=== PATIENT | female | born 1995 | race African-American/Black ===

== ENCOUNTER 2022-07-31 09:09 | Emergency (ER) | payer MEDICAID, SELFPAY ==
[2022-07-31 09:20] VITALS: BP 131/70; PULSE 89; RESP 16; TEMP 36.6; O2SAT 99
--- NOTE | 2022-07-31 09:47 | ED.DENTAL ---
HPI - Dental/Oral General Chief complaint: Dental/Oral Stated complaint: Dental Pain Time Seen by Provider: 07/31/22 10:02 Mode of arrival: ambulatory Limitations: no limitations History of Present Illness HPI Narrative: 27-year-old female presents concern for abscess tooth. She reports she has a broken wisdom tooth that she broke some time ago. She reports her pain is radiating to her ear head. Reports she has had infections in that tooth before she just finished a round of penicillin for an ear and tooth infection she was prescribed in the middle of July. She reports that did not help her tooth infection. She reports she has dental insurance kicking in next month and is looking for an oral surgeon to repair her tooth. She denies taking any other [id number] medications. Denies fever or trouble swallowing MD Complaint: tooth pain Related Data Allergies Allergy/AdvReac Type Severity Reaction Status Date / Time No Known Drug Allergies Allergy Unknown Other Verified 07/31/22 09:48 Review of Systems Review of Systems: CONSTITUTIONAL: Denies malaise, chills, sweats, or fever. EYES: Denies visual changes ENT: Denies rhinorrhea, congestion, sinus pain, otalgia or sore throat. Reports left upper dental pain CARDIOVASCULAR: Denies chest pain, palpitations RESPIRATORY: Denies cough or dyspnea. SKIN: Denies rash or itching. MUSCULOSKELETAL: Denies myalgia. NEUROLOGIC: Denies numbness, weakness, or headache. All systems reviewed & are unremarkable except as noted in HPI and below PMFSH Comments At time of signature, agree with nursing past medical, surgical, social and family history. There is no relevant family history pertinent to the presenting complaint Exam Narrative: GENERAL: Well-appearing, well-nourished, and in no acute distress. HEAD: Normocephalic, atraumatic. EYES: PERRLA, sclera clear ENT: Nares clear, turbinates pink, no rhinorrhea or epistaxis. Mucous membranes moist. TM pearly teresa with sharp light reflex bilaterally; no tragal tenderness. Oropharynx without erythema or lesions. Tonsils not enlarged and without exudate. Tooth 2. Broken without visible gingival or apical abscess, left cheek mildly swollen and tender NECK: Supple. No lymphadenopathy. CHEST: No respiratory distress. Speaks in full sentences. HEART: Regular rate and rhythm. SKIN: Warm, dry, no visible rash. NEURO: Alert and oriented x3. PSYCH: Normal mood and affect Course Course Emergency Course: Patient is aware of diagnosis, understands and agrees to treatment plan. Anticipatory guidance given. Patient agrees to follow-up as directed and is aware of reasons to seek care at the emergency department. Portions of this record may have been created with voice recognition software Level of Care: Express Care Visit Vital Signs Vital signs: Vital Signs Temperature 97.9 F 07/31/22 09:20 Pulse Rate 89 07/31/22 09:20 Respiratory Rate 16 07/31/22 09:20 Blood Pressure 131/70 07/31/22 09:20 Pulse Oximetry 99 07/31/22 09:20 Oxygen Delivery Room Air 07/31/22 09:20 Temperature 97.9 F 07/31/22 09:20 Pulse Rate 89 07/31/22 09:20 Respiratory Rate 16 07/31/22 09:20 Blood Pressure 131/70 07/31/22 09:20 Pulse Oximetry 99 07/31/22 09:20 Oxygen Delivery Room Air 07/31/22 09:20 Reviewed. MDM - Dental/Oral MDM Narrative Medical decision making narrative: Patients pain and complaint coupled with physical findings are consistant with dentalgia. There are no focal signs of space occupying lesions that are compromising to the airway; no dysphagia, odynophagia, dysphonia, or dyspnea. No uvular deviation or soft palate edema. Patient is non-toxic appearing. The floor of the mouth is soft with no signs of Myron's Angina; no induration below mandible, no neck pain. Patient is without trismus or drooling and able to swallow secretions. Patient is felt appropriate for discharge home with dental follow up. Merly
== END 2022-07-31 10:24 | disposition home or self-care (01) ==
PROVIDERS: Emergency Provider Nurse Practitioner
DX: K04.7 Periapical abscess without sinus (principal)
CPT/HCPCS: 99213; G0463

== ENCOUNTER 2022-12-16 12:12 | Emergency (ER) | payer OTHER, SELFPAY ==
[2022-12-16 12:20] VITALS: BP 113/63; PULSE 103; RESP 16; TEMP 36.9; O2SAT 100
[2022-12-16 12:24] VITALS: BP 113/63; PULSE 103; RESP 16; TEMP 36.9; O2SAT 100
--- NOTE | 2022-12-16 12:29 | ED.EAR ---
HPI - Ear Problem General Chief complaint: Ear Stated complaint: ear pain Time Seen by Provider: 12/16/22 12:29 Source: patient Mode of arrival: ambulatory Limitations: no limitations History of Present Illness HPI Narrative: 27-year-old female presented for complaint of bilateral ear itching, pain, and decreased hearing for about 3 days. Reports pain all around both ears and into the forehead. Pain is described as sharp and shooting. She has been using Q-tips, thinking she is having ear wax problem. Endorses mild drainage. She used earwax kit and ear drops for pain relief. Denies dizziness, tinnitus, sinus congestion, nausea, vomiting, fevers or chills. MD Complaint: ear pain Related Data Allergies Allergy/AdvReac Type Severity Reaction Status Date / Time No Known Drug Allergies Allergy Unknown Other Verified 12/16/22 12:23 Review of Systems Review of Systems: CONSTITUTIONAL: Denies malaise, chills, or fever. EYES: Denies visual changes, redness, or discharge. ENT: Denies rhinorrhea, congestion, sinus pain, and sore throat. Reports ear pain CARDIOVASCULAR: Denies chest pain, palpitations, or edema. RESPIRATORY: Denies cough or dyspnea. GASTROINTESTINAL: Denies abdominal pain, nausea, vomiting, diarrhea SKIN: Denies rash or itching. MUSCULOSKELETAL: Denies myalgia. All systems reviewed & are unremarkable except as noted in HPI and below PMFSH Past Medical History Medical History (Updated 12/16/22 @ 12:43 by Jovana Herrera, EVY) No pertinent past medical history Comments At time of signature, agree with nursing past medical, surgical, social and family history. There is no relevant family history pertinent to the presenting complaint Exam Narrative: GENERAL: Well-appearing, well-nourished, and in no acute distress. HEAD: Normocephalic EYES: PERRLA, conjunctivae clear ENT: Nares clear. Mucous membranes moist. Bilateral canals erythematous and tender with mild swelling and scant drainage; no occlusion. TMs pearly teresa with light reflex bilaterally; mild tragal tenderness. NECK: Supple. No lymphadenopathy CHEST: Clear to auscultation, breath sounds equal. HEART: Regular rate and rhythm. SKIN: Warm, dry, no rash. NEURO: Alert and oriented x3. PSYCH: Normal mood and affect Course Course Emergency Course: Patient is aware of diagnosis, understands and agrees to treatment plan. Anticipatory guidance given. Patient agrees to follow-up as directed and is aware of reasons to seek care at the emergency department. Portions of this record may have been created with voice recognition software Level of Care: Express Care Visit Vital Signs Vital signs: Vital Signs Temperature 98.4 F 12/16/22 12:20 Pulse Rate 103 H 12/16/22 12:20 Respiratory Rate 16 12/16/22 12:20 Blood Pressure 113/63 12/16/22 12:20 Pulse Oximetry 100 12/16/22 12:20 Oxygen Delivery Room Air 12/16/22 12:20 Temperature 98.4 F 12/16/22 12:24 Pulse Rate 103 H 12/16/22 12:24 Respiratory Rate 16 12/16/22 12:24 Blood Pressure 113/63 12/16/22 12:24 Pulse Oximetry 100 12/16/22 12:24 Oxygen Delivery Room Air 12/16/22 12:24 Reviewed Medical Decision Making MDM Narrative Medical decision making narrative: Discussed PE with pt. Advised supportive measures and signs/symptoms to go to the ER. Patient is appropriate for outpatient treatment and follow-up. Differential Diagnosis Differential Diagnosis: Coronavirus, strep pharyngitis, allergic rhinitis, upper respiratory tract infection, sinusitis, rhinosinusitis, nasopharyngitis, viral pharyngitis, otitis media, otitis externa, eustachian tube dysfunction, foreign body, cerumen impaction. Vital Signs Vital Signs: Vital Signs Temperature 98.4 F 12/16/22 12:20 Pulse Rate 103 H 12/16/22 12:20 Respiratory Rate 16 12/16/22 12:20 Blood Pressure 113/63 12/16/22 12:20 Pulse Oximetry 100 12/16/22 12:20 Oxygen Delivery Room Air 12/16/22 12:20 T
== END 2022-12-16 12:40 | disposition home or self-care (01) ==
PROVIDERS: Emergency Provider Nurse Practitioner Family
DX: H60.503 Unspecified acute noninfective otitis externa, bilateral (principal)
CPT/HCPCS: 99213; G0463